=== PATIENT | male | born 1960 | race Caucasian/White ===

== ENCOUNTER 2016-12-12 19:43 | Emergency (ER) | payer BC ==
[2016-12-12 20:24] VITALS: BP 177/90
[2016-12-12] MEDS ORDERED: HYDROmorphone 1 MG/ML Syringe IM ONE ×2 (20:49→21:35)
--- NOTE | 2016-12-12 20:54 | EDM.PDOC ---
ED HPI GENERAL MEDICAL PROBLEM - General Chief Complaint: Back Pain or Injury Stated Complaint: BACK HURTS NOT AN ACCIDENT Time Seen by Provider: 12/12/16 20:46 Source of Information: Reports: Patient, Family, RN Notes Reviewed History Limitations: Reports: No Limitations - History of Present Illness INITIAL COMMENTS - FREE TEXT/NARRATIVE: 56-year-old gentleman presents emergency department today with complaint of back pain, he has a history of chronic back pain has had multiple back surgeries for this particular event he is unsure of any particular lifting or twisting injury he denies any trauma it is very similar in nature to prior exacerbations of back pain, denies any loss of bowel or bladder Left Hip Pain Score (Numeric/FACES): 10 - Related Data Allergies Allergy/AdvReac Type Severity Reaction Status Date / Time No Known Allergies Allergy Verified 12/12/16 20:24 Home Meds: Home Meds Albuterol Sulfate [Proair Hfa] 2 puff IH Q4H PRN 09/11/13 [History] Fluticasone/Salmeterol [Advair 250-50] 1 puff INH BID 09/11/13 [History] Omeprazole 20 mg PO DAILY 10/12/13 [History] Lisinopril [Zestril] 10 mg PO DAILY 06/26/16 [History] Gabapentin [Neurontin] 300 mg PO BID 09/30/16 [History] Nabumetone [Nabumetone] 2 tab PO Q6H PRN 12/12/16 [History] Past Medical History HEENT History: Reports: Impaired Vision Other HEENT History: wears glasses Cardiovascular History: Reports: Arrhythmia, Hypertension Respiratory History: Reports: COPD Gastrointestinal History: Reports: GERD Musculoskeletal History: Reports: Back Pain, Chronic - Infectious Disease History Infectious Disease History: Reports: Chicken Pox - Past Surgical History GI Surgical History: Reports: Appendectomy, Cholecystectomy, EGD Neurological Surgical History: Reports: Spinal Fusion, Other (See Below) Other Neurological Surgeries/Procedures: 4 back surgeries Musculoskeletal Surgical History: Reports: Other (See Below) Other Musculoskeletal Surgeries/Procedures:: 4 back surgeries Social & Family History - Family History Respiratory: Reports: COPD Musculoskeletal: Reports: Back pain, Chronic - Tobacco Use Smoking Status *Q: Heavy Tobacco Smoker Years of Tobacco use: 38 Packs/Tins Daily: 1 Used Tobacco, but Quit: No Month Tobacco Last Used: October Second Hand Smoke Exposure: Yes - Caffeine Use Caffeine Use: Reports: None - Alcohol Use Days Per Week of Alcohol Use: 0 - Recreational Drug Use Recreational Drug Use: No ED ROS GENERAL - Review of Systems Review Of Systems: See Below Constitutional: Reports: No Symptoms Musculoskeletal: Reports: Back Pain Neurological: Reports: No Symptoms ED EXAM,LOWER BACK PAIN/INJURY - Physical Exam Exam: See Below Exam Limited By: No Limitations General Appearance: Alert, WD/WN, No Apparent Distress Back Exam: Normal Inspection, Decreased Range of Motion, Paraspinal Tenderness. No: Vertebral Tenderness Course - Vital Signs Last Recorded V/S: Last Vital Signs Temp 98.1 F 12/12/16 20:22 Pulse 87 12/12/16 20:22 Resp 20 12/12/16 20:22 BP 177/90 H 12/12/16 20:22 Pulse Ox 96 12/12/16 20:22 - Orders/Labs/Meds Meds: Medications Discontinued Medications Generic Name Dose Route Start Last Admin Trade Name Skyler PRN Reason Stop Dose Admin Hydromorphone HCl 1 mg 12/12/16 20:49 12/12/16 21:00 Dilaudid IM 12/12/16 20:50 1 mg ONETIME ONE Administration Departure - Departure Time of Disposition: 21:31 Disposition: Home, Self-Care 01 Condition: good Clinical Impression: Lumbar radiculopathy, chronic - Discharge Information Forms: ED Department Discharge Additional Instructions: Please followup with your primary care provider in 3-5 days if not better, please call return to the emergency department with worsening of symptoms. - Assessment/Plan Plan: Assessment Acuity = acute on chronic Site and laterality = exacerbation low back pain Etiology = unclear etiology Manifestations = none Location of injury = home Lab values = none Plan he had significant improvement 1 mg Dilaudid IM plan is to return home followup with his primary care as needed Patient was in agreement with the plan all questions were answered, they were instructed to return to the emergency department or call for worsening symptoms. This note was dictated using [employer] voice recognition software please call with any questions.
== END 2016-12-12 23:20 | disposition home or self-care (01) ==
LOC: JP.ED 19:43
DX: M54.16 Radiculopathy, lumbar region (principal); G89.29 Other chronic pain; I10 Essential (primary) hypertension; J44.9 Chronic obstructive pulmonary disease, unspecified; F17.210 Nicotine dependence, cigarettes, uncomplicated; Z90.89 Acquired absence of other organs; Z90.49 Acquired absence of other specified parts of digestive tract; Z98.890 Other specified postprocedural states; Z79.899 Other long term (current) drug therapy
CPT/HCPCS: 96372; 99283; J1170

== ENCOUNTER 2020-09-26 15:32 | Emergency (ER) | payer BC ==
[2020-09-26] MEDS ORDERED: Aspirin 81 MG Tab.Chew PO ONE (15:38)
[2020-09-26] MEDS ORDERED: Sodium Chloride 0.9% 1,000 ML IV SCH (15:45)
[2020-09-26] MEDS: Nitroglycerin 0.4 MG Tab.SL SL PRN ×3 (15:50→16:19)
--- NOTE | 2020-09-26 16:03 | EDM.PDOC ---
ED HPI GENERAL MEDICAL PROBLEM - General Chief Complaint: Chest Pain Stated Complaint: HEART ATTACK? Time Seen by Provider: 09/26/20 16:02 Source of Information: Reports: Patient History Limitations: Reports: No Limitations - History of Present Illness INITIAL COMMENTS - FREE TEXT/NARRATIVE: pt arrived with midsteral chest pain. He states he has had this for about 5 hours. He has not been sweaty. he is rating his pain about an 8. Onset: Today Duration: Hour(s): Location: Reports: Chest Associated Symptoms: Reports: Chest Pain, Shortness of Breath - Related Data Allergies Allergy/AdvReac Type Severity Reaction Status Date / Time No Known Allergies Allergy Verified 12/12/16 20:24 Home Meds: Home Meds Albuterol Sulfate [Proair Hfa] 2 puff IH Q4H PRN 09/11/13 [History] Fluticasone/Salmeterol [Advair 250-50] 1 puff INH BID 09/11/13 [History] Omeprazole 20 mg PO DAILY 10/12/13 [History] lisinopriL [Zestril] 10 mg PO DAILY 06/26/16 [History] Gabapentin [Neurontin] 300 mg PO BID 09/30/16 [History] Nabumetone 2 tab PO Q6H PRN 12/12/16 [History] Past Medical History HEENT History: Reports: Impaired Vision Other HEENT History: wears glasses Cardiovascular History: Reports: Arrhythmia, Hypertension Respiratory History: Reports: COPD Gastrointestinal History: Reports: GERD Musculoskeletal History: Reports: Back Pain, Chronic - Infectious Disease History Infectious Disease History: Reports: Chicken Pox - Past Surgical History HEENT Surgical History: Reports: Tonsillectomy GI Surgical History: Reports: Appendectomy, Cholecystectomy, EGD Neurological Surgical History: Reports: Spinal Fusion, Other (See Below) Other Neurological Surgeries/Procedures: 4 back surgeries Musculoskeletal Surgical History: Reports: Other (See Below) Other Musculoskeletal Surgeries/Procedures:: 4 back surgeries Social & Family History - Family History Respiratory: Reports: COPD Musculoskeletal: Reports: Back pain, Chronic - Caffeine Use Caffeine Use: Reports: None ED ROS GENERAL - Review of Systems Review Of Systems: See Below Constitutional: Reports: Diaphoresis HEENT: Reports: No Symptoms Respiratory: Reports: Shortness of Breath, Other (history of copd) Cardiovascular: Reports: Chest Pain Endocrine: Reports: No Symptoms GI/Abdominal: Reports: No Symptoms : Reports: No Symptoms Musculoskeletal: Reports: No Symptoms Skin: Denies: No Symptoms ED EXAM, GENERAL - Physical Exam Exam: See Below Free Text/Narrative:: pt arrived with acute chest pain which has been going on for about 5 hours. He has no history of cardiac problems. Exam Limited By: No Limitations General Appearance: Alert, Anxious, Moderate Distress, Other (pupils are equal and reactive. ) Ears: Normal TMs Nose: Normal Inspection Throat/Mouth: Normal Inspection Head: Atraumatic Neck: Normal Inspection Respiratory/Chest: No Respiratory Distress Cardiovascular: Regular Rate, Rhythm, Extra Beats GI/Abdominal: Soft, Non-Tender (Male) Exam: Deferred Rectal (Males) Exam: Deferred Back Exam: Normal Inspection Extremities: Normal Inspection Neurological: Alert, Oriented, Normal Cognition Psychiatric: Anxious Course - Vital Signs Last Recorded V/S: Last Vital Signs Temp 36.6 C 09/26/20 17:19 Pulse 72 09/26/20 17:19 Resp 21 H 09/26/20 17:19 BP 194/100 H 09/26/20 17:19 Pulse Ox 96 09/26/20 17:19 - Orders/Labs/Meds Labs: Laboratory Tests 09/26/20 09/26/20 09/26/20 Range/Units 15:43 15:43 15:43 WBC 10.6 (4.5-11.0) K/uL RBC 4.84 (4.30-5.90) M/uL Hgb 15.3 H (12.0-15.0) g/dL Hct 45.9 (40.0-54.0) % MCV 95 (80-98) fL MCH 32 H (27-31) pg MCHC 33 (32-36) % Plt Count 136 L (150-400) K/uL Neut % (Auto) 70 H (36-66) % Lymph % (Auto) 20 L (24-44) % Thomas % (Auto) 8 H (2-6) % Eos % (Auto) 2 (2-4) % Baso % (Auto) 1 (0-1) % APTT (27.0-36.0) sec Sodium 141 (140-148) mmol/L Potassium 4.1 (3.6-5.2) mmol/L Chloride 102 (100-108) mmol/L Carbon Dioxide 28 (21-32) mmol/L Anion Gap 11.4 (5.0-14.0) mmol/L BUN 14 (7-18) mg/dL Creatinine 1.0 (0.8-1.3) mg/dL Est Cr Clr Drug Dosing 74.10 mL/min Estimated GFR (MDRD) > 60 (>60) Glucose 118 H (74-106) mg/dL Calcium 9.1 (8.5-10.1) mg/dL Total Bilirubin 0.3 (0.2-1.0) mg/dL AST 14 L (15-37) U/L ALT 24 (12-78) U/L Alkaline Phosphatase 65 (46-116) U/L Troponin I 0.090 H* (0.000-0.056) ng/mL Total Protein 6.7 (6.4-8.2) g/dL Albumin 3.8 (3.4-5.0) g/dL Globulin 2.9 (2.3-3.5) g/dL Albumin/Globulin Ratio 1.3 (1.2-2.2) SARS CoV-2 RNA Rapid RAFIQ 09/26/20 09/26/20 Range/Units 16:18 17:20 WBC (4.5-11.0) K/uL RBC (4.30-5.90) M/uL Hgb (12.0-15.0) g/dL Hct (40.0-54.0) % MCV (80-98) fL MCH (27-31) pg MCHC (32-36) % Plt Count (150-400) K/uL Neut % (Auto) (36-66) % Lymph % (Auto) (24-44) % Thomas % (Auto) (2-6) % Eos % (Auto) (2-4) % Baso % (Auto) (0-1) % APTT 21.2 L (27.0-36.0) sec Sodium (140-148) mmol/L Potassium (3.6-5.2) mmol/L Chloride (100-108) mmol/L Carbon Dioxide (21-32) mmol/L Anion Gap (5.0-14.0) mmol/L BUN (7-18) mg/dL Creatinine (0.8-1.3) mg/dL Est Cr Clr Drug Dosing mL/min Estimated GFR (MDRD) (>60) Glucose (74-106) mg/dL Calcium (8.5-10.1) mg/dL Total Bilirubin (0.2-1.0) mg/dL AST (15-37) U/L ALT (12-78) U/L Alkaline Phosphatase (46-116) U/L Troponin I (0.000-0.056) ng/mL Total Protein (6.4-8.2) g/dL Albumin (3.4-5.0) g/dL Globulin (2.3-3.5) g/dL Albumin/Globulin Ratio (1.2-2.2) SARS CoV-2 RNA Rapid RAFIQ Negative Meds: Medications Discontinued Medications Generic Name Dose Route Start Last Admin Trade Name Freq PRN Reason Stop Dose Admin Aspirin 324 mg 09/26/20 15:38 09/26/20 15:49 Aspirin 81 Mg Tab.Chew PO 09/26/20 15:39 324 mg ONETIME ONE Administration Heparin Sodium (Porcine) 4,000 units 09/26/20 16:32 09/26/20 16:41 Heparin Sodium 5,000 Units/Ml Vial IVPUSH 09/26/20 16:33 4,000 units ONETIME ONE Administration Sodium Chloride 1,000 mls @ 100 mls/hr 09/26/20 15:45 09/26/20 15:50 Normal Saline IV 100 mls/hr ASDIRECTED BAN Administration Nitroglycerin/Dextrose 25 mg in 250 mls @ 6 mls/hr 09/26/20 16:30 09/26/20 17:25 Nitroglycerin 25 Mg/D5w 250 Ml IV 30 mcg/min TITRATE BAN 18 mls/hr Titration Protocol 10 MCG/MIN Lorazepam 0.5 mg 09/26/20 16:15 09/26/20 16:25 Lorazepam 2 Mg/Ml Sdv IVPUSH 09/26/20 16:16 0.5 mg ONETIME ONE Administration Nitroglycerin 0.4 mg 09/26/20 15:39 09/26/20 16:19 Nitroglycerin 0.4 Mg Tab.Sl SL 0.4 mg Q5M PRN Administration Chest Pain Ticagrelor 180 mg 09/26/20 16:30 09/26/20 16:42 Ticagrelor 90 Mg Tab PO 09/26/20 16:31 180 mg ONETIME ONE Administration - Re-Assessments/Exams Free Text/Narrative Re-Assessment/Exam: 09/26/20 16:26 pt has a mildly elevated trop Departure - Departure Time of Disposition: 18:00 Disposition: DC/Tfer to Acute Hospital 02 Reason for Transfer *Q: Primary PCI Indicated Condition: Fair Clinical Impression: Acute non Q wave myocardial infarction Referrals: PCP,None [Primary Care Provider] - Forms: ED Department Discharge Care Plan Goals: transfer to [facility].
[2020-09-26] MEDS ORDERED: LORazepam 2 MG/ML SDV IVPUSH ONE (16:15)
[2020-09-26] MEDS ORDERED: Nitroglycerin/D5W 25 MG/250 ML BOTTLE IV SCH (16:30)
[2020-09-26] MEDS ORDERED: Ticagrelor 90 MG Tab PO ONE (16:30)
[2020-09-26] MEDS ORDERED: Heparin Sodium 5,000 Units/ML Vial IVPUSH ONE (16:32)
[2020-09-26 17:20] VITALS: BP 194/100; PULSE 72
--- NOTE | 2020-09-27 08:54 | CR ---
CHEST: Portable 09/26/2020 at 4:08 PM CLINICAL HISTORY:Chest pain COMPARISON:None FINDINGS: Lungs are generally hyperaerated. The heart size, pulmonary vascularity and hilar structures are normal. No infiltrate effusion or pneumothorax is seen. There are atherosclerotic changes in the aorta. IMPRESSION: No acute cardiopulmonary process. Emphysematous changes
== END 2020-09-26 18:04 ==
LOC: JP.ED 15:32
DX: I21.4 Non-ST elevation (NSTEMI) myocardial infarction (principal); R79.89 Other specified abnormal findings of blood chemistry; I10 Essential (primary) hypertension; J44.9 Chronic obstructive pulmonary disease, unspecified; K21.9 Gastro-esophageal reflux disease without esophagitis; Z20.822 Contact with and (suspected) exposure to COVID-19; Z79.899 Other long term (current) drug therapy
CPT/HCPCS: 36415; 71045; 71045-26; 80053; 84484; 85025; 85730; 93005; 96365; 96375; 99285; 99285-25; A9270-GY; J1644; J2060; J3490; J7030; U0002